=== PATIENT | female | born 1995 | race Two or more races ===

== ENCOUNTER 2018-07-07 19:22 | Emergency (ER) | payer OTHER ==
[~2018-07-07] VITALS: Ht 165.1 cm; Wt 72.6 kg
[2018-07-07 19:25] VITALS: BP 104/55
[2018-07-07] MEDS ORDERED: IBUPROFEN 600 MG TABLET PO ONE ×2 (20:00→20:02)
[2018-07-07] MEDS ORDERED: ACETAMINOPHEN ES 500 MG TABLET PO ONE (20:00)
[2018-07-07] MEDS ORDERED: ACETAMINOPHEN ES 500 MG TABLET ONE (20:02)
== END 2018-07-07 20:13 | disposition home or self-care (01) ==
LOC: ER 19:24
DX: S09.8XXA Other specified injuries of head, initial encounter (principal); S93.401A Sprain of unspecified ligament of right ankle, initial encounter; W01.0XXA Fall on same level from slipping, tripping and stumbling without subsequent striking against object, initial encounter; Y93.89 Activity, other specified; Y92.038 Other place in apartment as the place of occurrence of the external cause; Y99.8 Other external cause status